=== PATIENT | female | born 1995 | race Caucasian/White ===

== ENCOUNTER 2020-11-02 13:55 | Emergency (ER) | payer SELFPAY ==
[~2020-11-02] VITALS: Ht 157.5 cm; Wt 84.0 kg
--- NOTE | 2020-11-02 14:43 | RAD ---
XR KNEE _4 VIEWS WITH PATELLA_LT History: Reason: fall / Spl. Instructions: / History: . Pain Technique: 4 views left knee. Comparison: None. Findings: Postoperative changes prior anterior cruciate ligament repair. Deformity of the patella with fragment ation. Normal alignment. No fracture. Minimal knee joint effusion. Mild patellar spurring. Impression: 1. Deformity of the patella with fragmentation, age indeterminant. Recommend correlation with point tenderness. If persistent clinical concern, CT can further evaluate. Electronically signed by: Avel Shipley DO (11/02/2020 2:40 PM) [id number]
--- NOTE | 2020-11-02 14:55 | PHYS DOC ---
Past History Past Medical History: No Pertinent History Past Surgical History: Appendectomy, Cholecystectomy, Hysterectomy, Other Additional Past Surgical Histo: left acl repair, Alcohol Use: None General Adult EDM: Chief Complaint: KNEE INJURY HPI: HPI: Patient is a 25-year-old female who presents with left knee pain. Patient st ates she was helping her grandma carry some furniture when she slipped on a step and fell and hit her left knee. Patient states that she had surgery for her ACL 3 months ago. "This feels just the same I hurt my ACL ". Patient denies taking thing for pain prior to arrival. Patient is still able to ambulate but has pain. Patient denies medical history. Review of Systems: Review of Systems: Constitutional: Denies fever or chills Eyes: Denies change in visual acuity HENT: Denies nasal congestion or sore throat Respiratory: Denies cough or shortness of breath Cardiovascular: Denies chest pain or edema GI: Denies abdominal pain, nausea, vomiting, bloody stools or diarrhea : Denies dysuria Musculoskeletal: Reports left knee pain. Integument: Denies rash Neurologic: Denies headache, focal weakness or sensory changes Endocrine: Denies polyuria or polydipsia Lymphatic: Denies swollen glands Psychiatric: Denies depression or anxiety Physical Exam: PE: Constitutional: Well developed, well nourished, no acute distress, non-toxic a ppearance. [] HENT: Normocephalic, atraumatic, bilateral external ears normal, oropharynx moist, no oral exudates, nose normal. [] Eyes: PERRLA, EOMI, conjunctiva normal, no discharge. [] Neck: Normal range of motion, no tenderness, supple, no stridor. [] Cardiovascular:Heart rate regular rhythm, no murmur [] Lungs & Thorax: Bilateral breath sounds clear to auscultation [] Abdomen: Bowel sounds normal, soft, no tenderness, no masses, no pulsatile masses. [] Skin: Warm, dry, no erythema, no rash. [] Back: No tenderness, no CVA tenderness. [] Extremities: Left knee tenderness, no cyanosis, no clubbing, ROM intact, no edema. [] Neurologic: Alert and oriented X 3, normal motor function, normal sensory function, no focal deficits noted. [] Psychologic: Affect normal, judgement normal, mood normal. [] Current Patient Data: Vital Signs: Vital Signs Date Time Temp Pulse Resp B/P (MAP) Pulse Ox O2 Delivery O2 Flow Rate FiO2 11/02/20 14:06 97.2 86 18 115/72 (86) 96 Room Air EKG: EKG: [] Radiology/Procedures: Radiology/Procedures: []XR KNEE _4 VIEWS WITH PATELLA_LT History: Reason: fall / Spl. Instructions: / History: . Pain Technique: 4 views left knee. Comparison: None. Findings: Postoperative changes prior anterior cruciate ligament repair. Deformity of the patella with fragmentation. Normal alignment. No fracture. Minimal knee joint effusion. Mild patellar spurring. Impression: 1. Deformity of the patella with fragmentation, age indeterminant. Recommend correlation with point tenderness. If persistent clinical concern, CT can further evaluate. Electronically signed by: Avel Shipley DO (11/02/2020 2:40 PM) [id number] Heart Score: C/O Chest Pain: No Risk Factors: Risk Factors: DM, Current or recent (<one month) smoker, HTN, HLP, family history of CAD, obesity. Risk Scores: Score 0 - 3: 2.5% MACE over next 6 weeks - Discharge Home Score 4 - 6: 20.3% MACE over next 6 weeks - Admit for Clinical Observation Score 7 - 10: 72.7% MACE over next 6 weeks - Early Invasive Strategies Course & Med Decision Making: Course & Med Decision Making Pertinent Labs and Imaging studies reviewed. (See chart for details) [] Patient presents with left knee pain after falling. Patient reports he tripped over a step fell and hit her left knee. Patient states "I am unable to extend my leg". Patient did report ambulating on her own into the emergency room but with increased pain. Patient denies taking anything for pain prior to arrival. Hydrocodone was ordered for patient's pain. Left knee x-ray ordered. Patient states "this feels like it does when I had to have my ACL repair 3 months ago". Knee x-ray shows Deformity of the patella with fragmentation, age indeterminant. Recommend correlation with point tenderness. If persistent clinical concern, CT can further evaluate. Patient has a patella fracture. Knee immobilizer ordered along with crutches and follow-up with Ortho on Thursday. Patient sent home with prescription for pain. Patient to return to emergency room with worsening symptoms or concerns. Bisi Disclaimer: Bisi Disclaimer: This electronic medical record was generated, in whole or in part, using a voice recognition dictation system. Departure Departure: Impression: Primary Impression: Fracture, patella Qualified Codes: S82.002A - Unspecified fracture of left patella, initial encounter for closed fracture Disposition: HOME / SELF CARE / HOMELESS Condition: STABLE Referrals: NON,STAFF (PCP) Patient Instructions: Patellar Fracture, Adult Additional Instructions: You're seen the emergency room today after a fall onto your knee. Your x-rays show a patella fracture. You were given a knee immobilizer, crutches and need you to follow-up with Ortho on Thursday for further management. I'm sending you home with pain medication, you can also take ibuprofen for discomfort. Rest, ice visor, elevation will help with swelling and pain. Please follow-up with Ortho on Thursday. Return emergency room with worsening symptoms or concerns. EMERGENCY DEPARTMENT GENERAL DISCHARGE INSTRUCTIONS Thank you for coming to [facility] (ED) today and trusting us with you care. We trust that you had a positivie experience in our Emergency Department. If you wish to speak to the department management, you may call the director at [phone]. YOUR FOLLOW UP INSTRUCTIONS ARE FOLLOWS: 1. Do you have a private Doctor? If you do not have a private doctor, please ask for a resource list of physicians or clinics that may be able to assist you with follow up care. 2. The Emergency Physician has interpreted your x-rays. The X-Ray specialist will also review them. If there is a change in the findings, you will be notified in 48 hours when at all possible. 3. A lab test or culture has been done, your results will be reviewed and you will be notified if you need a change in treatment. ADDITIONAL INSTRUCTIONS AND INFORMATION: 1. Your care today has been supervised by a physician who is specially trained in emergency care. Many problems require more than one evaluation for a complete diagnosis and treatment. We recommend that you schedule your follow up appointment as recommended to ensure complete treatment of you illness or injury. If you are unable to obtain follow up care and continue to have a problem, or if your condition worsens, we recommend that you return to the ED. 2. We are not able to safely determine your condition over the phone nor are we able to give sound medical advice over the phone. For these safety reasons, if you call for medical advice we will ask you to come to the ED for further evaluation. 3. If you have any questions regarding these discharge instructions please call the ED at [phone]. SAFETY INFORMATION: In the interest of safety, wellness, and injury prevention; we encourage you to wear your sealbelt, if you smoke; quite smoking, and we encourage family to use a protective helmet for bicycling and other sporting events that present an increased risk for head injury. IF YOUR SYMPTOMS WORSEN OR NEW SYMPTOMS DEVELOP, OR YOU HAVE CONCERNS ABOUT YOUR CONDITION; OR IF YOUR CONDITION WORSENS WHILE YOU ARE WAITING FOR YOUR FOLLOW UP APPOINTM ENT; EITHER CONTACT YOUR PRIMARY CARE DOCTOR, THE PHYSICIAN WHOSE NAME AND NUMBER YOU WERE GIVEN, OR RETURN TO THE ED IMMEDIATELY. Scripts Hydrocodone Bit/Acetaminophen (HYDROCODONE-APAP 5-325 ) 1 Each Tablet 1-2 TAB PO PRN Q6HRS PRN for PAIN for 3 Days, #12 TAB 0 Refills Prov: WANG REYES APRN 11/02/20 WANG REYES APRN Nov 02, 2020 14:55
[2020-11-02] MEDS ORDERED: HYDROcodone/APAP 5/325MG 1 TAB TABLET PO ONE ×2 (15:00→15:45)
[2020-11-02] MEDS ORDERED: HYDR-2155 PO (15:43)
[2020-11-02] MEDS ORDERED: MORPHINE SULFATE 4 MG/ML DISP.SYRIN. IM ONE (16:00)
[2020-11-02 16:05] VITALS: BP 117/80
== END 2020-11-02 16:25 | disposition home or self-care (01) ==
LOC: ER 13:55
DX: S82.002A Unspecified fracture of left patella, initial encounter for closed fracture (principal); W10.9XXA Fall (on) (from) unspecified stairs and steps, initial encounter; Y93.89 Activity, other specified; Y92.89 Other specified places as the place of occurrence of the external cause; Y99.8 Other external cause status
CPT/HCPCS: 29505; 73564; 96372; 99283; J2270

== ENCOUNTER 2021-02-27 19:11 | Emergency (ER) | payer MEDICAID ==
[~2021-02-27] VITALS: Ht 157.5 cm; Wt 84.0 kg
[~2021-02-27 19:11] MED LIST: HYDR-2155 PO
[2021-02-27] MEDS ORDERED: IV NORMAL SALINE 1,000ML 1,000 ML IV ONE (20:15)
[2021-02-27] MEDS ORDERED: ONDANSETRON PF 4 MG/2 ML VIAL. IVP ONE (20:15)
--- NOTE | 2021-02-27 20:22 | PHYS DOC ---
Past History Past Medical History: No Pertinent History Additional Past Medical Histor: ULCERS, "GI PROBLEMS" (DELORES TATE APRN) Past Surgical History: Appendectomy, Cholecystectomy, Hysterectomy, Other Additional Past Surgical Histo: left acl repair, (DELORES TATE APRN) Alcohol Use: None (DELORES TATE APRN) Adult General Chief Complaint Chief Complaint: ABDOMINAL PAIN HPI HPI Patient is a 25-year-old female patient who presents with abdominal pain worsening over the last couple days. Patient states she has not been able to eat or drink much of anything, states she is been vomiting up some blood-tinged emesis. States she feels like she is bleeding from her ulcer again. States she has had a bleeding ulcer for a while, had been on medications for a while, however is only taking OMeprazole intermittently now. Reports she has a follow- up with GI specialist for an ERCP late March 2021, however reports that she had her gallbladder removed 2 years ago. States she has chronic diarrhea, with no changes in her stools recently. States her pain is just sharp. Upper epigastric discomfort that does not go away, she had tried some ibuprofen which she says made the discomfort even worse. (DELORES TATE APRN) Review of Systems Review of Systems Constitutional: Denies fever or chills [] Eyes: Denies change in visual acuity, redness, or eye pain [] HENT: Denies nasal congestion or sore throat [] Respiratory: Denies cough or shortness of breath [] Cardiovascular: No additional information not addressed in HPI [] GI: [] reports left upper abdominal pain, nausea, vomiting with small amount of blood in her emesis, states unchanged today compared to normal : Denies dysuria or hematuria [] Musculoskeletal: Denies back pain or joint pain [] Integument: Denies rash or skin lesions [] Neurologic: Denies headache, focal weakness or sensory changes [] Endocrine: Denies polyuria or polydipsia [] All other systems were reviewed and found to be within normal limits, except as documented in this note. (DELORES TATE APRN) Allergies Allergies Allergies Coded Allergies Type Severity Reaction Last Updated Verified ketorolac Allergy Unknown 11/02/20 Yes sulfamethoxazole Allergy Unknown 11/02/20 Yes tramadol Allergy Unknown 11/02/20 Yes trimethoprim Allergy Unknown 11/02/20 Yes (DELORES TATE APRN) Physical Exam Physical Exam Constitutional: Well developed, well nourished, no acute distress, non-toxic appearance. [] Obese, appears uncomfortable, rocking in bed in discomfort HENT: Normocephalic, atraumatic, bilateral external ears normal, oropharynx moist, no oral exudates, nose normal. [] Eyes: PERRLA, EOMI, conjunctiva normal, no discharge. [] Neck: Normal range of motion, no tenderness, supple, no stridor. [] Cardiovascular:Heart rate regular rhythm, no murmur [] Lungs & Thorax: Bilateral breath sounds clear to auscultation [] Abdomen: Bowel sounds diminished throughout, soft, no masses, no pulsatile masses. [] Tenderness noted to epigastric and left upper abdomen, with minimal discomfort noted to right upper quadrant Skin: Warm, dry, no erythema, no rash. [] Back: No tenderness, no CVA tenderness. [] Extremities: No tenderness, no cyanosis, no clubbing, ROM intact, no edema. [] Neurologic: Alert and oriented X 3, normal motor function, normal sensory function, no focal deficits noted. [] Psychologic: Affect normal, judgement normal, mood normal. [] (DELORES TATE APRN) Current Patient Data Vital Signs Vital Signs Date Time Temp Pulse Resp B/P (MAP) Pulse Ox O2 Delivery O2 Flow Rate FiO2 02/27/21 20:05 97.6 90 18 109/61 100 Room Air (DELORES TATE APRN) EKG EKG [] (DELORES TATE APRN) Radiology/Procedures Radiology/Procedures Exam: CT of abdomen and pelvis without contrast INDICATION: Left upper quadrant pain TECHNIQUE: Sequential axial images through the abdomen and pelvis obtained without IV contrast. Sagittal and coronal reformatted images were reconstructed from the axial data and reviewed. Exposure: One or more of the following in the visualized dose reduction techniques were utilized for this examination: 1. Automated exposure control 2. Adjustment of the MA and/or KV according to patient size 3. Use of iterative of reconstructive technique Comparisons: None FINDINGS: Heart size is normal. No pericardial effusion. Visualized lung bases are clear. No pleural effusion. Evaluation of solid organs limited secondary to noncontrast technique. Liver, spleen, pancreas and adrenals are unremarkable. Gallbladder is absent. No perinephric inflammation or hydronephrosis. No renal or ureteral calculi are identified. Bladder is partially distended and not well evaluated. Uterus is absent. No abnormal adnexal mass. Large and small bowel are unremarkable. Appendix is not identified. No free intra-abdominal air or fluid. No obstruction. Abdominal aorta has a normal course and caliber. No enlarged intra-abdominal lymph nodes are identified. No suspicious osseous lesions or acute fractures. IMPRESSION: No suspicious identified within the abdomen or pelvis. Electronically signed by: Wlily Morales MD (02/27/2021 8:54 PM) [facility] DICTATED AND SIGNED BY: WILLY MORALES MD DATE: 02/27/212048[] (DELORES TATE APRN) Heart Score C/O Chest Pain: No Risk Factors: Risk Factors: DM, Current or recent (<one month) smoker, HTN, HLP, family history of CAD, obesity. Risk Scores: Risk Factors: DM, Current or recent (<one month) smoker, HTN, HLP, family history of CAD, obesity. (DELORES TATE APRN) Course & Med Decision Making Course & Med Decision Making Pertinent Labs and Imaging studies reviewed. (See chart for details) [] Given findings of left upper dental pain, with nausea and vomiting, will do imaging and labs to rule out pancreatitis. Discomfort likely related to her bleeding ulcer, will plan to administer Carafate to help with discomfort. Patient does have GI follow-up, with a known history of a bleeding gastric ulcer, had taken ibuprofen today, likely worsening her discomfort. will evaluate additional labs. Discussed results with patient, without acute abnormalities today. Chemistry carefully. Patient says she has been on care for in the past and did not seem to do very much for her. Patient also states that she has been taking 5-7 of the Pepcid tablets each day, advised patient to reduce her dosage down to the 2/day recommended. Also advised patient to stop taking ibuprofen, as it will worsen her bleeding ulcer. Will provide prescription for Carafate, recommend patient keep her follow-up appointment with her GI specialist next month. (DELORES TATE APRN) Dragon Disclaimer Dragon Disclaimer This electronic medical record was generated, in whole or in part, using a voice recognition dictation system. (DELORES TATE APRN) Attending Co-Sign The patient was seen and interviewed as well as examined at the bedside. The chart was reviewed. The case was discussed. Agree with the plan of care. (ROXANE SINGH DO) Departure Departure: Impression: Primary Impression: Duodenal ulcer Additional Impression: Abdominal pain Disposition: HOME / SELF CARE / HOMELESS Condition: STABLE Referrals: PCP,NO (PCP) Patient Instructions: Peptic Ulcer Disease Additional Instructions: As discussed, stop taking ibuprofen. Ibuprofen because the discomfort from ulcers to become a lot worse. Take no more than the maximum amount of pills recommended on the Pepcid package, which is 2/day. Take the Carafate as prescribed. Eat a bland diet. Keep your appointment with your GI specialist follow-up with your primary care provider as needed. Scripts Sucralfate (CARAFATE) 1 Gm Tablet 1 TAB PO QID for abdominal pain for 30 Days, #120 TAB 0 Refills Prov: DELORES TATE APRN 02/27/21 Problem Qualifiers Additional Impression: Abdominal pain Abdominal location: epigastric Qualified Codes: R10.13 - Epigastric pain DELORES TATE APRN Feb 27, 2021 20:22 ROXANE SINGH DO Mar 01, 2021 06:40
[2021-02-27 20:53] LABS: BASO # 0.1 x10^3/uL (0.0-0.2); BASO % 1 % (0-3); EOS # 0.3 x10^3/uL (0.0-0.7); EOS % 3 % (0-3); HEMATOCRIT 43.6 % (36.0-47.0); HEMOGLOBIN 14.9 g/dL (12.0-15.5); LYMPH # 4.5 x10^3/uL (1.0-4.8); LYMPH % 43 % (24-48); MEAN CORPUSCULAR HEMOGLOBIN 31 pg (25-35); MEAN CORPUSCULAR HGB CONC 34 g/dL (31-37); MEAN CORPUSCULAR VOLUME 90 fL (79-100); MONO # 0.7 x10^3/uL (0.0-1.1); MONO % 7 % (0-9); NEUT # 4.9 x10^3uL (1.8-7.7); NEUT % 47 % (31-73); PLATELET COUNT 335 x10^3/uL (140-400); RED BLOOD COUNT 4.85 x10^6/uL (3.50-5.40); RED CELL DISTRIBUTION WIDTH 12.8 % (11.5-14.5); WHITE BLOOD COUNT 10.5 x10^3/uL (4.0-11.0)
--- NOTE | 2021-02-27 20:57 | RAD ---
Exam: CT of abdomen and pelvis without contrast INDICATION: Left upper quadrant pain TECHNIQUE: Sequential axial images through the abdomen and pelvis obtained without IV contrast. Sagit nam and coronal reformatted images were reconstructed from the axial data and reviewed. Exposure: One or more of the following in the visualized dose reduction techniques were utilized for this examination: 1. Automated exposure control 2. Adjustment of the MA and/or KV according to patient size 3. Use of iterative of reconstructive technique Comparisons: None FINDINGS: Heart size is normal. No pericardial effusion. Visualized lung bases are clear. No pleural effusion. Evaluation of solid organs limited secondary to noncontrast technique. Liver, spleen, pancreas and adrenals are unremarkable. Gallbladder is absent. No perinephric inflammation or hydronephrosis. No renal or ureteral calculi are identified. Bladder is partially distended and not well evaluated. Uterus is absent. No abnormal adnexal mass. Large and small bowel are unremarkable. Appendix is not identified. No free intra-abdominal air or fl uid. No obstruction. Abdominal aorta has a normal course and caliber. No enlarged intra-abdominal lymph nodes are identified. No suspicious osseous lesions or acute fractures. IMPRESSION: No suspicious identified within the abdomen or pelvis. Electronically signed by: Charu Croft MD (02/27/2021 8:54 PM) [facility]
[2021-02-27 21:06] LABS: CALCIUM 8.9 mg/dL (8.5-10.1); CREATININE 0.6 mg/dL (0.6-1.0); GFR 122.8; POTASSIUM 3.9 mmol/L (3.5-5.1)
[2021-02-27 21:20] LABS: ALBUMIN 3.5 g/dL (3.4-5.0); MAGNESIUM 2.3 mg/dL (1.8-2.4); TOTAL BILIRUBIN 0.1 mg/dL (0.2-1.0); TOTAL PROTEIN 6.9 g/dL (6.4-8.2)
[2021-02-27] MEDS ORDERED: SUCRALFATE 1 GM TABLET. PO ONE (21:30)
[2021-02-27] MEDS ORDERED: SUCR1TAB35 PO (21:57)
[2021-02-27 22:00] VITALS: BP 142/84
[2021-02-27 22:12] LABS: BACTERIA,URINE FEW /HPF (0-FEW); BILIRUBIN,URINE NEG (NEG); CLARITY,URINE HAZY; COLOR,URINE YELLOW; GLUCOSE,URINE NEG (NEG); NITRITE,URINE NEG (NEG); RBC,URINE 0 /HPF (0-2); UROBILINOGEN,URINE 0.2 mg/dL (0.2 mg/dL); WBC,URINE 0 /HPF (0-4)
[2021-02-27 22:13] LABS: SQUAMOUS EPITHELIAL CELL,UR MANY /LPF
== END 2021-02-27 22:05 | disposition home or self-care (01) ==
LOC: ER 19:11
DX: K26.9 Duodenal ulcer, unspecified as acute or chronic, without hemorrhage or perforation (principal); Z90.89 Acquired absence of other organs; Z90.49 Acquired absence of other specified parts of digestive tract; Z90.710 Acquired absence of both cervix and uterus; Z88.2 Allergy status to sulfonamides; Z88.6 Allergy status to analgesic agent; Z88.1 Allergy status to other antibiotic agents
CPT/HCPCS: 36415; 74176; 80053; 81001; 83605; 83690; 83735; 85025; 96361; 96374; 96375; 99284; J2405; J3010; J7030